=== PATIENT | female | born 1955 | race Caucasian/White ===

== ENCOUNTER 2018-02-08 07:38 | Day surgery (SDC) | payer BC ==
[2018-02-08] MEDS ORDERED: LIDOCAINE 2% MDV (20MG/ML) 20ML VIAL IV ONE (07:39)
[2018-02-08] MEDS ORDERED: PROPOFOL 10 MG/ML VIAL IV ONE (07:39)
--- NOTE | 2018-02-13 16:10 | Operative Note ---
DATE OF SURGERY: OPERATION: Screening COLONOSCOPY. PREOPERATIVE DIAGNOSIS: Family history of colon cancer in first-degree relative. POSTOPERATIVE DIAGNOSIS: Fair prep and mild sigmoid diverticulosis. ESTIMATED BLOOD LOSS: None. SPECIMENS: None. COMPLICATIONS: None. PROCEDURE: After informed consent was obtained from the patient, she was placed in the left lateral decubitus position in the endoscopy suite, sedated and monitored by the department of anesthesia. Digital rectal examination was unremarkable. A well-lubricated [id number] colonoscope was inserted into the rectum and advanced to the cecum. Preparation quality was fair. Numerous areas were lavaged, particularly in the right colon. There was particulate matter that could not be evacuated and partially obscured view of the mucosa. The cecum, ascending colon, transverse colon, and descending colon were unremarkable. No polyps, mass, lesions, or diverticular inflammation was seen. The sigmoid colon revealed scattered diverticula mild in severity. No polyps were seen. The rectum was unremarkable in forward and J-turn views. The endoscope was straightened, the rectal ampulla deflated, and the endoscope was removed. RECOMMENDATIONS: The patient should follow a high-fiber diet. Recommend repeat exam in 3 years given the preparation quality. As always, thank you for allowing me to participate in the healthcare of your patients. CC: MD HILDA Nina
== END 2018-02-08 09:20 | disposition home or self-care (01) ==
LOC: HOP 07:38
PROVIDERS: ATTEND Internal Medicine Gastroenterology
DX: Z12.11 Encounter for screening for malignant neoplasm of colon (principal); Z80.0 Family history of malignant neoplasm of digestive organs; K57.30 Diverticulosis of large intestine without perforation or abscess without bleeding; G43.909 Migraine, unspecified, not intractable, without status migrainosus; F32.9 Major depressive disorder, single episode, unspecified
CPT/HCPCS: 00811; G0105